=== PATIENT | male | born 1955 | race Caucasian/White ===

== ENCOUNTER 2019-05-27 11:21 | Outpatient (CLI) | payer OTHER, SELFPAY ==
--- NOTE | 2019-05-27 11:40 | USCV_ITS ---
Rellobinnaashley Que Age: 63 Gender: M : 1955 Exam Date: 05/27/2019 11:55 Ordering Phys: Jennifer Rankin Technologist: Cornelia Angulo [place] [facility] [place] PAIN AND SWELLING LT LEG HISTORY: Pain and swelling Lt leg PROCEDURES: Venous duplex imaging was performed in only the left lower extremity. The following venous structures were evaluated: common femoral vein, profunda vein, proximal portion of the greater saphenous vein, superficial femoral vein, and the popliteal vein. In addition, the posterior tibial and peroneal trunk were evaluated. Serial compression, augmentation maneuvers, and spectral Doppler flow evaluation were performed. FINDINGS: No DVT seen in any vessel exained CONCLUSIONS Negative left lower extremity deep venous Doppler ultrasound. Dr. Mary Sosa MD (Electronically Signed) Final Date: 27 May 2019 13:01 S
--- NOTE | 2019-05-27 11:40 | XR_ITS ---
WS: [id number] XR tibia fibula LT 2V [id number] REASON FOR EXAM: SWELLING OF LEFT LEG/LEFT LEG PAIN FINDINGS: Healed fractures the tibia and fibula of the tibia seen immobilized with a intramedullary n ailing good position. There is no destructive changes seen in the fibula fracture appears to show goo d callus formation. XR/XR tibia fibula LT 2V [id number] IMPRESSION: Healed fractures of the tibia and fibula with antrum medullary nail in the tibi a good position. No soft tissue swelling is seen.
== END 2019-05-27 11:22 | disposition home or self-care (01) ==
LOC: RAD 11:26
PROVIDERS: PCP Nurse Practitioner Family; Visit Provider Nurse Practitioner Family
DX: M79.89 Other specified soft tissue disorders (principal); M79.605 Pain in left leg
CPT/HCPCS: 73590; 93971

== ENCOUNTER 2019-05-31 13:01 | Emergency (ER) | payer OTHER, SELFPAY ==
[2019-05-31 13:04] VITALS: BP 133/64; PULSE 92; RESP 17; TEMP 36.7; O2SAT 95; BMI 23.1
--- NOTE | 2019-05-31 13:30 | W.ED.EXTPRO ---
HPI - Extremity Problem General: Chief complaint: Extremity Problem,Nontraumatic Stated complaint: Lt leg pain Time Seen by Provider: 05/31/19 13:26 Source: patient Mode of arrival: ambulatory Limitations: no limitations History of Present Illness: HPI Narrative: Patient comes in today for continued complaints of left lower extremity pain. Patient has a history of a tib-fib fracture with repair done 20 years ago. Patient states that he was seen 4 days ago by primary care and was started on medication for concerns of cellulitis. Patient reports that he has had improvement for swelling and redness but the pain gets severe at times still. Patient appears well. Patient appears in mild pain at rest. MD Complaint: extremity pain Review of Systems General: Reports: 10 or more systems reviewed and unremarkable except in HPI and below Musc: Reports: extremity pain Skin/Breast: Reports: redness PFSH ED PFSH: Social History Smoking and tobacco status: current every day smoker Physical Exam Const: COMMON NORMALS: no apparent distress and oriented x3 GENERAL APPEARANCE: cooperative HENMT: COMMON NORMALS: normocephalic, external ears normal, EAC's normal, TM's normal bilaterally and external nose normal HEAD & SCALP: normal to inspection and normocephalic FACE & SINUS: normal facial exam NOSE: external nose normal GENERAL EAR: hearing not grossly impaired EXTERNAL EAR: Yes external ears normal EXTERNAL AUDITORY CANAL: EAC's normal TYMPANIC MEMBRANE: TM's normal bilaterally MOUTH: oral and palatal mucosa normal THROAT: posterior oropharynx normal Eye: COMMON NORMALS: PERRL and EOMs intact bilaterally PUPIL: Yes PERRL Neck/C-Spine: COMMON NORMALS: full ROM and no lymphadenopathy Lymph: LYMPHATIC: no lymphedema noted Chest: COMMONS NORMALS: inspection of chest normal and palpation of chest normal Resp: COMMON NORMALS: normal respiratory effort and clear to auscultation bilaterally AUSCULTATION: clear to auscultation bilaterally Cardio: COMMON NORMALS: regular rate and regular rhythm RATE: regular rate RHYTHM: regular rhythm GI: COMMON NORMALS: normal to inspection, nondistended, normoactive bowel sounds and non-tender : COMMON NORMALS: Yes no CVA tenderness BLADDER/KIDNEY EXAM: Yes no CVA tenderness Back/Pelvis: COMMON NORMALS: no CVA tenderness and thoracic and lumbar spine normal to inspection Extremity: NARRATIVE EXTREMITY EXAM: Examination of the extremity notes an area of redness approximately 3 cm to the left knee without much swelling or redness. The remainder of the extremity notes no significant swelling or deficit in the pulses. Neuro: COMMON NORMALS: oriented x3, moves all extremities and no focal motor deficits Psych: COMMON NORMALS: mental status grossly normal and cooperative Skin: COMMON NORMALS: no rashes or lesions noted GENERAL SKIN EXAM: no rashes or lesions noted Course ED course: 1430, reviewed venous Doppler study from Monday noting no venous blood clot. X-ray of the extremity noted no signs of osteomyelitis and intact hardware. Vital Signs: Vital signs: Vital Signs Temperature 98.1 F 05/31/19 13:04 Pulse Rate 92 05/31/19 13:04 Respiratory Rate 17 05/31/19 13:04 Blood Pressure 133/64 05/31/19 13:04 Pulse Oximetry 95 05/31/19 13:04 MDM - Extremity (Nontraumatic) MDM Narrative: Medical decision making narrative: Patient comes in for persistent pain to the left lower leg. Patient was seen and primary care on Monday and was diagnosed with cellulitis. Patient comes in for noticing some improvement in the swelling and redness to the leg but has had increased pain at times still to the leg. Patient had talked to Dr. Conroy at the clinic and was recommended to come to the ER for further evaluation. Exam noted a area of redness to the left knee pad that may be significant for cellulitis. The rest of the leg showed some tortuous veins but otherwise was without signs of redness or swelling. Pulses were intact. Reviewed x-rays from Monday that showed no osteomyelitis or significant abnormality with intact hardware. And venous Doppler study showed no blood clot. Differential diagnosis includes claudication, DVT, cellulitis, arthralgia, chronic pain syndrome. Arterial Doppler of the leg showed no restriction in blood flow. Patient had a good triphasic flow and his TBI was 1 to the left leg. D-dimer was slightly elevated but review of the previous ultrasound indicated no sign of blood clot in that leg. CBC was normal. CMP noted a 134 sodium and a 4.2 potassium and the remainder of the labs were not remarkable. I think that this is probably more due to pain just exacerbated by his recent cellulitis. I went ahead and switched his antibiotic from the clindamycin he only had 3 tablets left we will switch to Bactrim twice a day for the next 10 days and will add hydrocodone to help with his pain control. Patient was recommended to talk further with his primary care for may be changing his sertraline to duloxetine which may assist with chronic pain issues. Patient was reports understanding agreed to plan. Lab Data: Labs: Lab Results 05/31/19 05/31/19 05/31/19 Range/Units 13:57 13:57 13:57 WBC 9.7 (4.0-10.0) 10^3/ uL RBC 4.61 (4.1-5.3) 10^6/u L Hgb 14.5 (11.7-16.6) g/dL Hct 42.8 (42.0-52.0) % MCV 92.8 (80-94) fL MCH 31.5 (28.0-34.0) pg MCHC 33.9 (30.0-36.0) g/dL RDW 12.5 (12.1-15.1) % Plt Count 220 (130-400) 10^3/c mm MPV 9.9 (7.4-10.4) fL Neut % (Auto) 73.2 % Lymph % (Auto) 11.8 % [place] % (Auto) 13.4 % Eos % (Auto) 0.8 % Baso % (Auto) 0.5 % Neut # (Auto) 7.1 (1.8-7.7) 10^3/u L Lymph # (Auto) 1.1 (0.8-4.8) 10^3/u L [place] # (Auto) 1.3 H (0.2-0.9) 10^3/u L Eos # (Auto) 0.1 (0.0-0.8) 10^3/u L Baso # (Auto) 0.1 (0.0-0.1) 10^3/u L Nucleated RBC % (a uto) 0 % Nucleated RBCs # 0.0 /100WBC D-Dimer (0-0.59) ug/mIFE U Sodium 134 L (136-145) mmol/L Potassium 4.2 (3.5-5.1) mmol/L Chloride 95 L (98-107) mmol/L Carbon Dioxide 31 H (22-29) mmol/L Anion Gap 12.2 (5-19) BUN 9 (8-23) mg/dL Creatinine 0.8 (0.7-1.2) mg/dL GFR Calculation 97.3 (90-130) mL/min Glucose 123 H (65-115) mg/dL Calculated Osmolal ity 275 L (285-295) mOsm/k g Lactic Acid 1.3 (0.5-2.2) mmol/L Calcium 9.7 (8.5-10.5) mg/dL Total Bilirubin 0.7 (0.15-1.2) mg/dL AST 22 (0-40) U/L ALT 22 (0-41) U/L Alkaline Phosphata se 67 (40-130) IU/L C-Reactive Protein 147.0 H (0.0-4.9) mg/L Total Protein 7.7 (6.6-8.7) g/dL Albumin 4.0 (3.5-5.2) g/dL Globulin 3.7 (1.3-4.6) g/dL 03/20/20 Range/Units 13:57 WBC (4.0-10.0) 10^3/ uL RBC (4.1-5.3) 10^6/u L Hgb (11.7-16.6) g/dL Hct (42.0-52.0) % MCV (80-94) fL MCH (28.0-34.0) pg MCHC (30.0-36.0) g/dL RDW (12.1-15.1) % Plt Count (130-400) 10^3/c mm MPV (7.4-10.4) fL Neut % (Auto) % Lymph % (Auto) % [place] % (Auto) % Eos % (Auto) % Baso % (Auto) % Neut # (Auto) (1.8-7.7) 10^3/u L Lymph # (Auto) (0.8-4.8) 10^3/u L [place] # (Auto) (0.2-0.9) 10^3/u L Eos # (Auto) (0.0-0.8) 10^3/u L Baso # (Auto) (0.0-0.1) 10^3/u L Nucleated RBC % (a uto) % Nucleated RBCs # /100WBC D-Dimer 1.59 H (0-0.59) ug/mIFE U Sodium (136-145) mmol/L Potassium (3.5-5.1) mmol/L Chloride (98-107) mmol/L Carbon Dioxide (22-29) mmol/L Anion Gap (5-19) BUN (8-23) mg/dL Creatinine (0.7-1.2) mg/dL GFR Calculation (90-130) mL/min Glucose (65-115) mg/dL Calculated Osmolal ity (285-295) mOsm/k g Lactic Acid (0.5-2.2) mmol/L Calcium (8.5-10.5) mg/dL Total Bilirubin (0.15-1.2) mg/dL AST (0-40) U/L ALT (0-41) U/L Alkaline Phosphata se (40-130) IU/L C-Reactive Protein (0.0-4.9) mg/L Total Protein (6.6-8.7) g/dL Albumin (3.5-5.2) g/dL Globulin (1.3-4.6) g/dL Discharge Plan Discharge Patient Disposition: Home, Self-Care Clinical Impression: Left leg pain Cellulitis Qualifiers: Site of cellulitis: extremity Site of cellulitis of extremity: lower extremity Laterality: left Qualified Code(s): L03.116 - Cellulitis of left lower limb Condition: Stable Prescriptions: New Bactrim DS 800-160 mg tablet 1 tab PO DAILY 10 Days Qty: 20 RF: 0 hydrocodone-acetaminophen 5-325 mg tablet 1 tab PO Q8H PRN (Reason: pain (scale score 7-10)) Qty: 14 RF: 0 Discharge Orders: Discharge Order (Routine); Ordered 05/31/19 Ordered By: Matias Martell Referrals: [facility] [Other] Jennifer Rankin MANAGER IN TRAINING [Primary Care Provider] - Discharge Diet: Usual diet Discharge Activity: Increase activity as tolerated Patient Instructions: Arthralgia (ED) Activity Restrictions/Additional Instructions: Activity as tolerated Medications as directed Follow-up with primary care in one week Return to ER for increased redness or fever to extremity Talk with primary care about changing sertraline to duloxetine for possible better chronic pain control Coding Level of Care Code ED Tile Finisher for Chg Fwd Exam Comprehensive
[2019-05-31 14:08] LABS: Basophils # 0.1 10^3/uL (0.0-0.1); Basophils % 0.5 %; Eosinophils # 0.1 10^3/uL (0.0-0.8); Eosinophils % 0.8 %; Hematocrit 42.8 % (42.0-52.0); Hemoglobin 14.5 g/dL (11.7-16.6); Lymphocytes # 1.1 10^3/uL (0.8-4.8); Lymphocytes % 11.8 %; Mean Corpuscular HGB Conc 33.9 g/dL (30.0-36.0); Mean Corpuscular Hemoglobin 31.5 pg (28.0-34.0); Mean Corpuscular Volume 92.8 fL (80-94); Mean Platelet Volume 9.9 fL (7.4-10.4); Monocytes # 1.3 10^3/uL (0.2-0.9); Monocytes % 13.4 %; Neutrophils # 7.1 10^3/uL (1.8-7.7); Neutrophils % 73.2 %; Nucleated Red Blood Cells % 0 %; Platelet Count 220 10^3/cmm (130-400); Red Blood Count 4.61 10^6/uL (4.1-5.3); Red Cell Distribution Width 12.5 % (12.1-15.1); White Blood Count 9.7 10^3/uL (4.0-10.0)
[2019-05-31 14:25] LABS: Alanine Aminotransferase 22 U/L (0-41); Alkaline Phosphatase 67 IU/L (40-130); Anion Gap 12.2 (5-19); Aspartate Amino Transferase 22 U/L (0-40); Blood Urea Nitrogen 9 mg/dL (8-23); Calcium 9.7 mg/dL (8.5-10.5); Carbon Dioxide 31 mmol/L (22-29); Chloride 95 mmol/L (98-107); Creatinine Clr Calc Pharmacy 99.3521; Globulin 3.7 g/dL (1.3-4.6); Glomerular Filtration Rate 97.3 mL/min (90-130); Glucose 123 mg/dL (65-115); Osmolality Calculated 275 mOsm/kg (285-295); Potassium 4.2 mmol/L (3.5-5.1); Sodium 134 mmol/L (136-145); Total Bilirubin 0.7 mg/dL (0.15-1.2); Total Protein 7.7 g/dL (6.6-8.7)
[2019-05-31 14:26] LABS: Lactic Sepsis W/Reflex 1.3 mmol/L (0.5-2.2)
--- NOTE | 2019-05-31 14:31 | USCV_ITS ---
Que Harvey Age: 63 Gender: M : 1955 Exam Date: 05/31/2019 15:04 Ordering Phys: Matias Martell Technologist: Ana Cristina Hayward Exam Location: [facility] – [place] Indication: leg pain Risk Factors: Smoker Previous Vascular Surgery: None RIGHT LEFT BP: 156.0 / BP: 149.0/ 0 0 Waveform Velocity (cm/s) Velocity (cm/s) Waveform Iliac Prox 114.9 Triphasic Iliac Mid 130.2 Triphasic Iliac Distal 127.9 Triphasic PROGRESSIVE ASSEMBLER AND FITTER 139.7 Triphasic SFA Prox 75.0 Triphasic SFA Mid 101.4 Triphasic SFA Dist 95.9 Triphasic POP 80.5 Triphasic DE ALCOHOLIZER 67.6 Biphasic DPA 47.4 Biphasic FINDINGS LISA pressures >220 TBI done Left TBI 1.03 left brachial 149 right brachial 156 right TBI 0.85 Intimal thickening in the iliac and femoral artery on the left side CONCLUSIONS No evidence of any significant arterial obstruction, based on the above findings.(Left side) Dr Arnoldo Johnson MD FACC (Electronically Signed) Final Date: 31 May 2019 18:24 S
[2019-05-31 14:57] LABS: D Dimer 1.59 ug/mIFEU (0-0.59)
--- NOTE | 2019-05-31 15:47 | PC.NURSE ---
pt back from xray
[2019-05-31 16:46] VITALS: BP 160/75; PULSE 85; RESP 18; TEMP 36.7; O2SAT 96
== END 2019-05-31 16:06 | disposition home or self-care (01) ==
PROVIDERS: Emergency Provider Nurse Practitioner Family; PCP Nurse Practitioner Family
DX: L03.116 Cellulitis of left lower limb (principal); M79.662 Pain in left lower leg; F17.200 Nicotine dependence, unspecified, uncomplicated
CPT/HCPCS: 12345; 36415; 80053; 83605; 85025; 85378; 86140; 87040; 93926; 99281; 99283

== ENCOUNTER 2019-06-05 08:07 | Outpatient (CLI) | payer OTHER, SELFPAY ==
--- NOTE | 2019-06-05 08:37 | NM_ITS ---
WS: [id number] Nuclear medicine whole body bone scan, 06/05/2019 Clinical Data: LEFT LEG PAIN Comparison: Left leg, 05/27/2019 Findings: After the intravenous injection of 25.1 mCi of technetium 99m HDP blood flow imaging of the legs was obtained. There is increased blood flow in the proximal portion of the left leg. Pool imaging also showed increased activity in the proximal portion of the left leg. Then the delayed imaging showed anterior and posterior whole-body imaging along with lateral cervical spine and skull images. Additional anterior, posterior, medial and lateral views of the left leg wer e obtained. There is increased radionuclide uptake uptake throughout the proximal half of the left ti adriana. This is consistent with probable osteomyelitis involving the proximal left tibia. The remainder of the skeleton showed no abnormal areas of activity. There is normal renal function. NM/NM bone 3 phase [id number] Impression: Increased activity in blood flow, blood pool and delayed imaging of the proxima l portion of the left tibia most consistent with osteomyelitis.
== END 2019-06-05 08:08 | disposition home or self-care (01) ==
PROVIDERS: PCP Nurse Practitioner Family; Visit Provider Nurse Practitioner Family
DX: M79.605 Pain in left leg (principal)
CPT/HCPCS: 78315; A9561

== ENCOUNTER → 2019-07-02 09:58 | Outpatient (BNVA) | payer OTHER, SELFPAY | PROVIDERS: PCP Nurse Practitioner Family; Visit Provider Specialist | DX: S82.209A Unspecified fracture of shaft of unspecified tibia, initial encounter for closed fracture (principal); S82.409A Unspecified fracture of shaft of unspecified fibula, initial encounter for closed fracture; M86.9 Osteomyelitis, unspecified | CPT/HCPCS: 73590 ==

== ENCOUNTER 2020-04-28 14:45 | Outpatient (CLI) | payer OTHER, SELFPAY ==
[2020-04-28 15:04] LABS: Basophils % 0.5 %; Eosinophils # 0.2 10^3/uL (0.0-0.8); Eosinophils % 1.9 %; Hematocrit 30.3 % (42.0-52.0); Lymphocytes # 1.8 10^3/uL (0.8-4.8); Lymphocytes % 22.3 %; Mean Corpuscular Hemoglobin 30.6 pg (28.0-34.0); Mean Corpuscular Volume 92.7 fL (80-94); Mean Platelet Volume 10.9 fL (7.4-10.4); Monocytes % 12.7 %; Neutrophils # 5.03 10^3/uL (1.8-7.7); Neutrophils % 62.4 %; Nucleated Red Blood Cells % 0 %; Platelet Count 140 10^3/cmm (130-400); Red Blood Count 3.27 10^6/uL (4.1-5.3); White Blood Count 8.1 10^3/uL (4.0-10.0)
[2020-04-28 15:23] LABS: Alanine Aminotransferase 23 U/L (0-41); Alkaline Phosphatase 76 IU/L (40-130); Anion Gap 12.8 (5-19); Aspartate Amino Transferase 24 U/L (0-40); Blood Urea Nitrogen 12 mg/dL (8-23); Calcium 8.5 mg/dL (8.5-10.5); Carbon Dioxide 26 mmol/L (22-29); Chloride 98 mmol/L (98-107); Globulin 3.1 g/dL (1.3-4.6); Glomerular Filtration Rate 166.9 mL/min (90-130); Glucose 95 mg/dL (65-115); Osmolality Calculated 276 mOsm/kg (285-295); Potassium 3.8 mmol/L (3.5-5.1); Sodium 133 mmol/L (136-145); Total Bilirubin 0.4 mg/dL (0.15-1.2); Total Protein 6.1 g/dL (6.6-8.7)
== END 2020-04-28 14:46 | disposition home or self-care (01) ==
PROVIDERS: PCP Nurse Practitioner Family; Visit Provider Orthopaedic Surgery Orthopaedic Trauma
DX: M86.9 Osteomyelitis, unspecified (principal)
CPT/HCPCS: 80053; 85025

== ENCOUNTER 2020-05-01 15:10 | Outpatient (CLI) | payer OTHER, SELFPAY ==
[2020-05-01 16:39] LABS: C Reactive Protein 159.2 mg/L (0.0-4.9)
== END 2020-05-01 15:11 | disposition home or self-care (01) ==
PROVIDERS: PCP Nurse Practitioner Family; Visit Provider Internal Medicine Infectious Disease
DX: M86.9 Osteomyelitis, unspecified (principal)
CPT/HCPCS: 86140

== ENCOUNTER 2020-05-08 13:17 | Outpatient (CLI) | payer OTHER, SELFPAY ==
[2020-05-08 13:55] LABS: Basophils # 0.1 10^3/uL (0.0-0.1); Basophils % 0.8 %; Eosinophils # 0.2 10^3/uL (0.0-0.8); Eosinophils % 2.1 %; Hematocrit 33.2 % (42.0-52.0); Hemoglobin 10.2 g/dL (11.7-16.6); Lymphocytes # 2.1 10^3/uL (0.8-4.8); Lymphocytes % 23.9 %; Mean Corpuscular HGB Conc 30.7 g/dL (30.0-36.0); Mean Corpuscular Hemoglobin 29.4 pg (28.0-34.0); Mean Corpuscular Volume 95.7 fL (80-94); Mean Platelet Volume 9.5 fL (7.4-10.4); Monocytes # 0.7 10^3/uL (0.2-0.9); Monocytes % 7.8 %; Neutrophils # 5.71 10^3/uL (1.8-7.7); Neutrophils % 65.1 %; Nucleated Red Blood Cells % 0 %; Platelet Count 439 10^3/cmm (130-400); Red Blood Count 3.47 10^6/uL (4.1-5.3); White Blood Count 8.8 10^3/uL (4.0-10.0)
[2020-05-08 14:18] LABS: Alanine Aminotransferase 16 U/L (0-41); Albumin Level 3.3 g/dL (3.5-5.2); Alkaline Phosphatase 72 IU/L (40-130); Anion Gap 12.3 (5-19); Aspartate Amino Transferase 15 U/L (0-40); Blood Urea Nitrogen 14 mg/dL (8-23); C Reactive Protein 72.5 mg/L (0.0-4.9); Calcium 8.6 mg/dL (8.5-10.5); Carbon Dioxide 27 mmol/L (22-29); Chloride 103 mmol/L (98-107); Globulin 3.1 g/dL (1.3-4.6); Glomerular Filtration Rate 113.2 mL/min (90-130); Glucose 86 mg/dL (65-115); Osmolality Calculated 286 mOsm/kg (285-295); Potassium 4.3 mmol/L (3.5-5.1); Sodium 138 mmol/L (136-145); Total Bilirubin 0.2 mg/dL (0.15-1.2); Total Protein 6.4 g/dL (6.6-8.7)
== END 2020-05-08 13:18 | disposition home or self-care (01) ==
PROVIDERS: PCP Nurse Practitioner Family; Visit Provider Internal Medicine Infectious Disease
DX: M86.68 Other chronic osteomyelitis, other site (principal)
CPT/HCPCS: 80053; 85025; 86140

== ENCOUNTER 2020-05-13 14:26 | Outpatient (CLI) | payer OTHER, SELFPAY ==
[2020-05-13 14:51] LABS: Basophils # 0.1 10^3/uL (0.0-0.1); Basophils % 0.9 %; Eosinophils # 0.3 10^3/uL (0.0-0.8); Eosinophils % 3.1 %; Hematocrit 34.7 % (42.0-52.0); Hemoglobin 10.9 g/dL (11.7-16.6); Lymphocytes # 2.1 10^3/uL (0.8-4.8); Lymphocytes % 25.2 %; Mean Corpuscular HGB Conc 31.4 g/dL (30.0-36.0); Mean Corpuscular Hemoglobin 29.5 pg (28.0-34.0); Mean Corpuscular Volume 93.8 fL (80-94); Mean Platelet Volume 9.5 fL (7.4-10.4); Monocytes # 0.6 10^3/uL (0.2-0.9); Monocytes % 7.8 %; Neutrophils # 5.12 10^3/uL (1.8-7.7); Neutrophils % 62.6 %; Nucleated Red Blood Cells % 0 %; Platelet Count 410 10^3/cmm (130-400); Red Cell Distribution Width 14.2 % (12.1-15.1); White Blood Count 8.2 10^3/uL (4.0-10.0)
[2020-05-13 15:21] LABS: Alanine Aminotransferase 14 U/L (0-41); Albumin Level 3.5 g/dL (3.5-5.2); Alkaline Phosphatase 83 IU/L (40-130); Anion Gap 11.2 (5-19); Aspartate Amino Transferase 17 U/L (0-40); Blood Urea Nitrogen 15 mg/dL (8-23); C Reactive Protein 46.3 mg/L (0.0-4.9); Calcium 9.2 mg/dL (8.5-10.5); Carbon Dioxide 28 mmol/L (22-29); Chloride 101 mmol/L (98-107); Globulin 3.3 g/dL (1.3-4.6); Glucose 95 mg/dL (65-115); Osmolality Calculated 283 mOsm/kg (285-295); Potassium 4.2 mmol/L (3.5-5.1); Sodium 136 mmol/L (136-145); Total Bilirubin 0.2 mg/dL (0.15-1.2); Total Protein 6.8 g/dL (6.6-8.7)
== END 2020-05-13 14:27 | disposition home or self-care (01) ==
PROVIDERS: PCP Nurse Practitioner Family; Visit Provider Internal Medicine Infectious Disease
DX: M86.9 Osteomyelitis, unspecified (principal)
CPT/HCPCS: 80053; 85025; 86140

== ENCOUNTER 2020-05-20 14:09 | Outpatient (CLI) | payer OTHER, SELFPAY ==
[2020-05-20 14:44] LABS: Basophils # 0.1 10^3/uL (0.0-0.1); Basophils % 0.9 %; Eosinophils # 0.2 10^3/uL (0.0-0.8); Eosinophils % 2.5 %; Hemoglobin 11.3 g/dL (11.7-16.6); Lymphocytes # 2.1 10^3/uL (0.8-4.8); Lymphocytes % 25.7 %; Mean Corpuscular HGB Conc 32.3 g/dL (30.0-36.0); Mean Corpuscular Volume 92.8 fL (80-94); Mean Platelet Volume 10.1 fL (7.4-10.4); Monocytes # 0.7 10^3/uL (0.2-0.9); Monocytes % 8.2 %; Neutrophils % 62.5 %; Nucleated Red Blood Cells % 0 %; Platelet Count 244 10^3/cmm (130-400); Red Blood Count 3.77 10^6/uL (4.1-5.3); Red Cell Distribution Width 14.5 % (12.1-15.1); White Blood Count 8.2 10^3/uL (4.0-10.0)
[2020-05-20 16:04] LABS: Alanine Aminotransferase 15 U/L (0-41); Albumin Level 3.6 g/dL (3.5-5.2); Alkaline Phosphatase 87 IU/L (40-130); Anion Gap 12.4 (5-19); Aspartate Amino Transferase 19 U/L (0-40); Blood Urea Nitrogen 12 mg/dL (8-23); Calcium 9.1 mg/dL (8.5-10.5); Carbon Dioxide 27 mmol/L (22-29); Chloride 105 mmol/L (98-107); Globulin 3.3 g/dL (1.3-4.6); Glucose 99 mg/dL (65-115); Osmolality Calculated 290 mOsm/kg (285-295); Potassium 4.4 mmol/L (3.5-5.1); Sodium 140 mmol/L (136-145); Total Bilirubin 0.2 mg/dL (0.15-1.2); Total Protein 6.9 g/dL (6.6-8.7)
== END 2020-05-20 14:10 | disposition home or self-care (01) ==
LOC: LAB 14:11
PROVIDERS: PCP Nurse Practitioner Family; Visit Provider Internal Medicine Infectious Disease
DX: M86.9 Osteomyelitis, unspecified (principal)
CPT/HCPCS: 80053; 85025; 86140

== ENCOUNTER 2020-05-24 10:54 | Emergency (ER) | payer OTHER, SELFPAY ==
[2020-05-24 11:01] VITALS: BP 166/80; PULSE 70; RESP 18; TEMP 36.3; O2SAT 96; BMI 23.7
--- NOTE | 2020-05-24 11:14 | ED_ITS ---
HPI - General Adult General: Chief complaint: General Medical Stated complaint: PICK LINE IS CLOGGED Time Seen by Provider: 05/24/20 11:07 History of Present Illness: HPI narrative: Patient states PICC line is occluded. Said he tried to flush it out yesterday afternoon it did not work presents here after speaking to nurse internet application developer for the hospitalist had a command and get PICC line taken care of. Patient is receiving IV antibiotics for osteomyelitis MD complaint: PICC line occlusion right arm Onset (ago): hour(s) Associated symptoms: Deny chest pain or dyspnea Review of Systems Narrative: PICC line occlusion Const: Denies: fever(s) Card: Denies: chest pain Resp: Denies: dyspnea Psych: Denies: anxiety PFSH ED PFSH: Medical History (Updated 05/24/20 @ 12:37 by NIYAH Clemens) Fracture, tibia and fibula, shaft Surgical History History of surgery on extremity Social History Smoking and tobacco status: current every day smoker Physical Exam Const: COMMON NORMALS: no acute distress Psych: COMMON NORMALS: mental status grossly normal Skin: OTHER: PICC line in place right arm Course Vital Signs: Vital signs: Vital Signs Temperature 97.3 F L 05/24/20 11:01 Pulse Rate 84 05/24/20 13:02 Respiratory Rate 16 05/24/20 13:02 Blood Pressure 143/80 05/24/20 13:02 Pulse Oximetry 95 05/24/20 13:02 MDM - General Adult MDM Narrative: Medical decision making narrative: Alteplase did not work to break clot in PICC line patient is to contact his provider is ordered IV antibiotics and see about getting PICC line taken out new one put in. We will give IM Rocephin today that his medication has been taken at home daily. Discharge Plan Discharge Patient Disposition: Home Clinical Impression: Osteomyelitis Qualifiers: Osteomyelitis type: other chronic Osteomyelitis location: unspecified site Qualified Code(s): M86.60 - Other chronic osteomyelitis, unspecified site Condition: Stable Prescriptions: No Action linezolid [Zyvox] 600 mg tablet 600 mg PO BID RF: 0 sertraline [Zoloft] 25 mg tablet 25 mg PO DAILY RF: 0 sulfamethoxazole-trimethoprim [Bactrim DS] 800-160 mg tablet 1 tab PO BID Qty: 180 RF: 0 hydrocodone-acetaminophen 5-325 mg tablet 1 tab PO Q8H PRN (Reason: pain (scale score 7-10)) Qty: 14 RF: 0 Discharge Orders: Discharge ED (Routine); Ordered 05/24/20 Ordered By: Marco A Mcguire Referrals: Jennifer Rankin FNP [Primary Care Provider] - Discharge Diet: Usual diet Discharge Activity: Resume usual activity Patient Instructions: Osteomyelitis (ED) Activity Restrictions/Additional Instructions: Contact your orthopedic surgeon tomorrow and see about getting a new PICC line put in. Coding Level of Care Code ED Fretted Instrument Repairer for Tashia Fwd Exam Expanded Problem Focused
[2020-05-24] MEDS: alteplase 1 mg/mL SDV 2 mL 2 MG INTRACATH (11:50)
[2020-05-24] MEDS: water for injection-sterile 10 ML (12:45)
[2020-05-24] MEDS: cefTRIAXone 1,000 MG in lidocaine 1% 2.1 ML 1 MG IM (12:57)
[2020-05-24 13:02] VITALS: BP 143/80; PULSE 84; RESP 16; O2SAT 95
--- NOTE | 2020-05-24 13:05 | PC.NURSE ---
TPA removed, CL locked with sterile water per mid level instruction
== END 2020-05-24 13:06 | disposition home or self-care (01) ==
PROVIDERS: Emergency Provider Nurse Practitioner Family; PCP Nurse Practitioner Family
DX: M86.60 Other chronic osteomyelitis, unspecified site (principal); F17.210 Nicotine dependence, cigarettes, uncomplicated
CPT/HCPCS: 96372; J0696; J2997

== ENCOUNTER 2020-06-04 12:58 | Outpatient (CLI) | payer OTHER, SELFPAY ==
[2020-06-04 13:09] LABS: Basophils # 0.1 10^3/uL (0.0-0.1); Basophils % 0.8 %; Eosinophils # 0.2 10^3/uL (0.0-0.8); Eosinophils % 2.4 %; Hemoglobin 11.9 g/dL (11.7-16.6); Lymphocytes # 2.2 10^3/uL (0.8-4.8); Lymphocytes % 31.7 %; Mean Corpuscular HGB Conc 31.3 g/dL (30.0-36.0); Mean Corpuscular Hemoglobin 29.2 pg (28.0-34.0); Mean Corpuscular Volume 93.4 fL (80-94); Mean Platelet Volume 10.1 fL (7.4-10.4); Monocytes # 0.4 10^3/uL (0.2-0.9); Monocytes % 5.8 %; Neutrophils # 4.16 10^3/uL (1.8-7.7); Nucleated Red Blood Cells % 0 %; Platelet Count 225 10^3/cmm (130-400); Red Blood Count 4.07 10^6/uL (4.1-5.3); Red Cell Distribution Width 15.6 % (12.1-15.1); White Blood Count 7.1 10^3/uL (4.0-10.0)
[2020-06-04 13:45] LABS: Alanine Aminotransferase 12 U/L (0-41); Albumin Level 3.7 g/dL (3.5-5.2); Alkaline Phosphatase 73 IU/L (40-130); Anion Gap 11.2 (5-19); Aspartate Amino Transferase 20 U/L (0-40); Blood Urea Nitrogen 12 mg/dL (8-23); C Reactive Protein 13.1 mg/L (0.0-4.9); Calcium 8.6 mg/dL (8.5-10.5); Carbon Dioxide 26 mmol/L (22-29); Chloride 105 mmol/L (98-107); Globulin 2.8 g/dL (1.3-4.6); Glomerular Filtration Rate 113.2 mL/min (90-130); Glucose 106 mg/dL (65-115); Osmolality Calculated 286 mOsm/kg (285-295); Potassium 4.2 mmol/L (3.5-5.1); Sodium 138 mmol/L (136-145); Total Bilirubin 0.2 mg/dL (0.15-1.2); Total Protein 6.5 g/dL (6.6-8.7)
== END 2020-06-04 12:59 | disposition home or self-care (01) ==
LOC: LAB 13:00
PROVIDERS: PCP Nurse Practitioner Family; Visit Provider Internal Medicine Infectious Disease
DX: M86.9 Osteomyelitis, unspecified (principal)
CPT/HCPCS: 80053; 85025; 86140

== ENCOUNTER → 2021-10-22 08:15 | Outpatient (BNVA) | payer OTHER, MEDICARE, SELFPAY | PROVIDERS: PCP Clinical Nurse Specialist Adult Health; Visit Provider Clinical Nurse Specialist Adult Health | DX: J44.1 Chronic obstructive pulmonary disease with (acute) exacerbation (principal) | CPT/HCPCS: 80053; 85025 ==

== ENCOUNTER 2023-02-13 09:53 | Outpatient (CLI) | payer OTHER, MEDICARE, SELFPAY | END 2023-02-13 09:54 | disposition home or self-care (01) | LOC: RAD 09:54 | PROVIDERS: PCP Clinical Nurse Specialist Adult Health; Visit Provider Clinical Nurse Specialist Adult Health | DX: R91.8 Other nonspecific abnormal finding of lung field (principal) | CPT/HCPCS: 71046 ==

== ENCOUNTER 2023-04-13 11:48 | Outpatient (CLI) | payer OTHER, MEDICARE, SELFPAY ==
[2023-04-13 12:35] LABS: Basophils # 0.1 10^3/uL (0.0-0.1); Basophils % 0.9 %; Eosinophils # 0.6 10^3/uL (0.0-0.8); Eosinophils % 5.9 %; Hematocrit 41.9 % (37-53); Lymphocytes # 2.2 10^3/uL (0.8-4.8); Lymphocytes % 22.6 %; Mean Corpuscular HGB Conc 32.7 g/dL (30-55); Mean Corpuscular Hemoglobin 31.1 pg (27-33); Mean Platelet Volume 9.8 fL (7.4-10.4); Monocytes % 9.8 %; Neutrophils % 60.5 %; Nucleated Red Blood Cells % 0 %; Platelet Count 244 10^3/cmm (157-399); Red Blood Count 4.41 10^6/uL (3.85-5.65); Red Cell Distribution Width 13.1 % (12.1-15.1); White Blood Count 9.91 10^3/uL (3.29-11.43)
[2023-04-13 12:54] LABS: Alanine Aminotransferase 15 U/L (0-41); Albumin Level 3.8 g/dL (3.5-5.2); Alkaline Phosphatase 86 U/L (40-130); Anion Gap 13.4 (5-19); Aspartate Amino Transferase 18 U/L (0-40); Blood Urea Nitrogen 12 mg/dL (8-23); Calcium 9.5 mg/dL (8.5-10.5); Carbon Dioxide 28 mmol/L (22-29); Chloride 99 mmol/L (98-107); Globulin 3.1 g/dL (1.3-4.6); Glucose 119 mg/dL (65-115); Magnesium 2.1 mg/dL (1.7-2.3); Osmolality Calculated 283 mOsm/kg (285-295); Potassium 4.4 mmol/L (3.5-5.1); Sodium 136 mmol/L (136-145); Total Bilirubin 0.5 mg/dL (0.15-1.2); Total Protein 6.9 g/dL (6.6-8.7)
== END 2023-04-13 11:49 | disposition home or self-care (01) ==
LOC: LAB 11:51
PROVIDERS: PCP Clinical Nurse Specialist Adult Health; Visit Provider Radiology Radiation Oncology
DX: Z01.812 Encounter for preprocedural laboratory examination (principal)
CPT/HCPCS: 36415; 80053; 82248; 83735; 85025

== ENCOUNTER → 2023-04-18 10:17 | Outpatient (BNVA) | payer OTHER, MEDICARE, SELFPAY | PROVIDERS: PCP Clinical Nurse Specialist Adult Health; Visit Provider Internal Medicine | DX: C76.0 Malignant neoplasm of head, face and neck (principal); C00.8 Malignant neoplasm of overlapping sites of lip; Z01.818 Encounter for other preprocedural examination | CPT/HCPCS: 93005 ==

== ENCOUNTER 2023-04-19 11:05 | Outpatient (CLI) | payer OTHER, MEDICARE, SELFPAY ==
[2023-04-19 11:17] VITALS: PULSE 85; RESP 18; O2SAT 92
[2023-04-19] MEDS: albuterol 2.5 mg/3 mL Neb INHALATION (11:17)
[2023-04-19 11:21] VITALS: PULSE 77
== END 2023-04-19 11:06 | disposition home or self-care (01) ==
LOC: RT 11:06
PROVIDERS: PCP Clinical Nurse Specialist Adult Health; Visit Provider Radiology Radiation Oncology
DX: C76.0 Malignant neoplasm of head, face and neck (principal); C00.8 Malignant neoplasm of overlapping sites of lip
CPT/HCPCS: 94060; 94729

== ENCOUNTER 2023-06-02 12:01 | Outpatient (CLI) | payer OTHER, MEDICARE, SELFPAY ==
--- NOTE | 2023-06-02 12:15 | CT_ITS ---
WS: [id number] LDCT LUNG CANCER SCREENING TECHNIQUE: Noncontrast CT of the chest with coronal and sagittal reformatted images. CLINICAL INFORMATION: Cancer Screen COMPARISON: None. DLP: 68.77 mGy.cm DIvol: Mean CTDIvol: 1.10 (mGy) All CT scans at [facility] use at least one of these dose optimization techniques: automat ed exposure control; mA and/or kV adjustment per patient size (includes targeted exams where dose is matched to clinical indication); or iterative reconstruction. FINDINGS: Advanced chronic emphysematous changes. No acute pulmonary infiltrates. Bibasilar atelectas is with interstitial thickening in the lung bases. Subsegmental atelectasis RIGHT lower lobe. Bronchi ectasis both lower lobes. Noncalcified nodule RIGHT lower lobe laterally measuring 6 mm. Tiny noncalcified nodule RIGHT upper l obe. Noncalcified nodules LEFT lower lobe laterally measuring 7 mm and 5 mm. RIGHT middle lobe nodule measuring 6 mm. Aortic calcification. Coronary calcification. No mediastinal or hilar lymphadenopathy. No axillary ly mphadenopathy. Normal GE junction. Adrenal glands are normal. IMPRESSION: Multiple bilateral subcentimeter pulmonary nodules the largest LEFT lower lobe measuring 7 mm. Recommend 6-month follow-up. CT/CT lung screening [id number] LUNG-RADS: 3-Probably Benign FOLLOW UP: 6 Month LDCT
== END 2023-06-02 12:02 | disposition home or self-care (01) ==
LOC: RAD 12:02
PROVIDERS: PCP Clinical Nurse Specialist Adult Health; Visit Provider Internal Medicine Pulmonary Disease
DX: Z12.2 Encounter for screening for malignant neoplasm of respiratory organs (principal); F17.210 Nicotine dependence, cigarettes, uncomplicated; R91.8 Other nonspecific abnormal finding of lung field; J43.9 Emphysema, unspecified; J98.11 Atelectasis
CPT/HCPCS: 71271

== ENCOUNTER 2023-11-21 10:53 | Outpatient (CLI) | payer OTHER, MEDICARE, SELFPAY ==
--- NOTE | 2023-11-21 10:45 | CTR_ITS ---
PROCEDURE INFORMATION: Exam: CT Chest Without Contrast; Diagnostic Exam date and time: 11/21/2023 11:18 AM Age: 68 years old Clinical indication: Abnormal findings; Abnormal radiologic exam of lung or chest; Patient HX: Recurrent pneumonia, SOB , HX of adenocystic carcinoma; Additional info: Follow up, follow up CT chest TECHNIQUE: Imaging protocol: Diagnostic computed tomography of the chest without contrast. Radiation optimization: All CT scans at this facility use at least one of these dose optimization techniques: automated exposure control; mA and/or kV adjustment per patient size (includes targeted exams where dose is matched to clinical indication); or iterative reconstruction. COMPARISON: CT lung screening [id number] 06/02/2023 12:10 PM RADIATION DOSE METRICS: Total DLP (mGy-cm): 337.76 FINDINGS: Lungs: Decreasing size/less conspicuous bibasilar nodules, for example largest nodule in the left lung base previously measuring 7 mm now measures 5 mm. Scattered scarring in both lungs. No consolidation. Pleural spaces: Unremarkable. No pneumothorax. No pleural effusion. Heart: Unremarkable. No cardiomegaly. No pericardial effusion. Lymph nodes: Unremarkable. No enlarged lymph nodes. Vasculature: Unremarkable. No aortic aneurysm. Bones/joints: Unremarkable. No acute fracture. Soft tissues: Unremarkable. CT/CT chest wo con [id number] IMPRESSION: Decreasing size of the previously noted bibasilar nodules. No new or enlarging pulmonary nodules/masses.
== END 2023-11-21 10:54 | disposition home or self-care (01) ==
LOC: RAD 10:54
PROVIDERS: PCP Clinical Nurse Specialist Adult Health; Visit Provider Clinical Nurse Specialist Adult Health
DX: J18.9 Pneumonia, unspecified organism (principal); Z85.858 Personal history of malignant neoplasm of other endocrine glands; R91.8 Other nonspecific abnormal finding of lung field
CPT/HCPCS: 71250

== ENCOUNTER 2024-08-23 07:35 | Outpatient (CLI) | payer OTHER, MEDICARE, SELFPAY ==
--- NOTE | 2024-08-23 07:45 | CT_ITS ---
WS: [id number] LDCT LUNG CANCER SCREENING TECHNIQUE: Noncontrast CT of the chest with coronal and sagittal reformatted images. CLINICAL INFORMATION: screening COMPARISON: 2023 DLP: 66.37 mGy.cm DIvol: Mean CTDIvol: 1.10 (mGy) All CT scans at [facility] use at least one of these dose optimization techniques: automated exposure control; mA and/or kV adjustment per patient size (includes targeted exams where dose is matched to clinical indication); or iterative reconstruction. FINDINGS: Advanced chronic emphysematous changes. Previously described pulmonary nodules are stable. Several new new noncalcified nodules RIGHT lower lobe measuring 5 mm. Bronchiectasis with few tree-in-bud opacities in the lower lobes. Noncalcified nodule RIGHT lower lobe laterally measuring 6 mm. Tiny noncalcified nodule RIGHT upper lobe. Noncalcified nodules LEFT lower lobe laterally measuring 7 mm and 5 mm. RIGHT middle lobe nodule measuring 6 mm. Aortic calcification. Coronary calcification. No mediastinal or hilar lymphadenopathy. No axillary lymphadenopathy. Normal GE junction. Adrenal glands are normal. CT/CT lung screening [id number] IMPRESSION: LUNG-RADS: 2-Benign Appearance or Behavior FOLLOW UP: 12 Month: Continue annual screening with LDCT
== END 2024-08-23 07:36 | disposition home or self-care (01) ==
PROVIDERS: PCP Family Medicine; Visit Provider Family Medicine
DX: Z12.2 Encounter for screening for malignant neoplasm of respiratory organs (principal); F17.219 Nicotine dependence, cigarettes, with unspecified nicotine-induced disorders; J43.8 Other emphysema; R91.8 Other nonspecific abnormal finding of lung field; J47.9 Bronchiectasis, uncomplicated; I70.0 Atherosclerosis of aorta; I25.10 Atherosclerotic heart disease of native coronary artery without angina pectoris
CPT/HCPCS: 71271

== ENCOUNTER → 2024-11-28 15:37 | Outpatient (BNVA) | payer OTHER, MEDICARE, SELFPAY | PROVIDERS: PCP Family Medicine; Referring Provider Family Medicine; Visit Provider Internal Medicine | DX: J44.9 Chronic obstructive pulmonary disease, unspecified (principal); J47.9 Bronchiectasis, uncomplicated | CPT/HCPCS: 36415; 82103; 82784; 85025 ==

== ENCOUNTER → 2025-02-24 16:06 | Outpatient (BNVA) | payer OTHER, MEDICARE, SELFPAY | PROVIDERS: PCP Family Medicine; Visit Provider Internal Medicine | DX: J43.9 Emphysema, unspecified (principal) | CPT/HCPCS: 36415 ==